=== PATIENT | male | born 1970 | race Caucasian/White ===

== ENCOUNTER 2023-08-18 10:09 | Emergency (ER) | payer BC, SELFPAY ==
[2023-08-18 10:18] VITALS: BP 179/109; PULSE 58; RESP 16; TEMP 36.6; O2SAT 100
--- NOTE | 2023-08-18 10:30 | DI.RAD_ITS ---
Exam(s) XR RIBS LT W PA LAT CHEST EXAM: XR RIBS LT W PA LAT CHEST CLINICAL HISTORY: left rib pain, midaxillary line 8-10 pain. TECHNIQUE: 2D digital imaging was performed. COMPARISON: No exams were available for comparison FINDINGS: Total 6 views: Left ribs-four views: There is a fracture of the anterolateral aspect of the left 7th rib. On 1 imag e there is also a fracture of the posterolateral aspect of the left 9th rib, nondisplaced. Chest x-ray: Heart size upper normal. Mediastinum not widened. No infiltrates nor pleural effusions . No lung contusion. No pneumothorax. IMPRESSION: Nondisplaced fracture of the posterolateral aspect of the left 9th rib. Also possible fracture of th e anterolateral aspect of the left 7th rib. No acute pulmonary findings. No pneumothorax. DATA REPOSITORY: RADIATION DOSE DELIVERED:
[2023-08-18] MEDS: Ibuprofen 600 MG TAB PO (10:44)
[2023-08-18] MEDS: Acetaminophen 325 MG TAB 650 MG PO (10:44)
[2023-08-18] MEDS: Lidocaine 5% Patch 1 PATCH TP (10:44)
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
[2023-08-18 11:21] VITALS: BP 154/92; PULSE 58; RESP 16; O2SAT 98
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
== END 2023-08-18 11:42 | disposition home or self-care (01) ==
PROVIDERS: Emergency Provider Physician Assistant
DX: S22.42XA Multiple fractures of ribs, left side, initial encounter for closed fracture (principal); R03.0 Elevated blood-pressure reading, without diagnosis of hypertension; W00.0XXA Fall on same level due to ice and snow, initial encounter; Y93.01 Activity, walking, marching and hiking
CPT/HCPCS: 99283; 71046; 71100